=== PATIENT | male | born 1965 | race Caucasian/White ===

== ENCOUNTER 2019-11-25 13:27 | Inpatient (IN) ==
[2019-11-25] MEDS ORDERED: LOPERAMIDE 2 MG CAPSULE PO STA (13:56)
[2019-11-25] MEDS ORDERED: SODIUM CHLORIDE 0.9% 1,000 ML IV STA ×2 (13:56→15:30)
[2019-11-25] MEDS ORDERED: ONDANSETRON 4 MG/2 ML VIAL IV STA (13:56)
[2019-11-25 14:21] LABS: Basophils % 0.1 % (0.0-0.8); Hemoglobin 10.9 GM/DL (14.0-18.0); Immature Granulocytes % 0.5 %; Immature Granulocytes Absolute 0.07 #; Lymphocytes # 0.6 10*3/uL (1.4-4.0); Lymphocytes % 3.9 % (21.2-54.2); Mean Corpuscular HGB Conc 34.1 GM/DL (32-36); Mean Corpuscular Volume 90.7 FL (87-102); Mean Platelet Volume 10.1 FL (9.6-12.0); Monocytes % 3.9 % (1.7-12.7); Neutrophils % 91.6 % (38.7-73.9); Platelet Count 414 T/CUMM (130-400); Red Blood Count 3.53 MC/CUMM (3.8-5.5); Red Cell Distribution Width 14.7 % (9.3-17.3); White Blood Count 15.5 T/CUMM (4-12)
[2019-11-25 14:43] LABS: Lymphocytes 6 % (20-55); Segmented Neutrophils 91 % (50-85); Total Cells Counted 100
[2019-11-25 14:44] LABS: Burr Cells Few; Elliptocytes Few; Hypochromasia Slight; Platelet Estimate Adequate
[2019-11-25 15:22] LABS: Albumin 2.7 G/DL (3.4-5.0); Bilirubin,Total 0.5 MG/DL (0.2-1.0); Calcium 10.8 MG/DL (8.5-10.1); Osmolality,Calculated 323.4 MOS/KG (273-304)
[2019-11-25 16:21] LABS: Apearance,Urine CLEAR (Clear); Bacteria,Urine Occasional /HPF (Few); Bilirubin,Urine Negative (Negative); Blood, Urine Small mg/dL (Negative); Glucose,Urine (UA) Negative (Negative); Ketones,Urine Negative (Negative); Mucus,Urine Occasional /LPF (Occasional); Nitrite,Urine Negative (Negative); Protein,Urine Negative; RBC,Urine 3 /HPF (0-4); Squamous Epithelial Cell,Urine Occasional /HPF (0-10); Urine Color Yellow (Yellow); Urine Specific Gravity 1.015 (1.001-1.035); Urine Urobilinogen < 2.0 EU/DL (0.2-1.0); WBC,Urine 13 /HPF (0-6)
[2019-11-25 16:41] LABS: PT Patient Result 10.3 SECS (9.8-11.9); Partial Thromboplastin Time 25.6 SECS (23.9-33.8)
[2019-11-25] MEDS ORDERED: PROMETHAZINE 25 MG/1 ML VIAL IM PRN (16:54)
[2019-11-25] MEDS ORDERED: GLUCAGON 1 MG VIAL IM PRN (16:54)
[2019-11-25] MEDS ORDERED: DEXTROSE 10% 250 ML BAG IV PRN (16:54)
[2019-11-25] MEDS: SODIUM CHLORIDE 0.9% 1,000 ML IV SCH (17:35)
[2019-11-25] MEDS ORDERED: ALUMINUM/MAGNES/SIMETH MAX STR 30 ML UDCUP PO PRN (20:24)
[2019-11-25] MEDS: PANTOPRAZOLE 40 MG VIAL IV SCH (20:45)
[2019-11-26] MEDS: SODIUM CHLORIDE 0.9% 1,000 ML IV SCH ×3 (02:59→20:58)
[2019-11-26 06:47] LABS: Basophils % 0.1 % (0.0-0.8); Hematocrit 25.2 VOL% (42.0-52.0); Hemoglobin 8.3 GM/DL (14.0-18.0); Immature Granulocytes % 0.4 %; Immature Granulocytes Absolute 0.05 #; Lymphocytes # 0.4 10*3/uL (1.4-4.0); Lymphocytes % 2.9 % (21.2-54.2); Mean Corpuscular HGB Conc 32.9 GM/DL (32-36); Mean Platelet Volume 9.9 FL (9.6-12.0); Monocytes % 4.3 % (1.7-12.7); Neutrophils % 92.3 % (38.7-73.9); Platelet Count 338 T/CUMM (130-400); Red Blood Count 2.71 MC/CUMM (3.8-5.5); Red Cell Distribution Width 15.4 % (9.3-17.3); White Blood Count 12.6 T/CUMM (4-12)
[2019-11-26 07:02] LABS: PT Patient Result 10.4 SECS (9.8-11.9)
[2019-11-26 07:14] LABS: Hypochromasia 1+; Lymphocytes 5 % (20-55); Platelet Estimate Adequate; Segmented Neutrophils 94 % (50-85); Total Cells Counted 100
[2019-11-26 07:24] LABS: Albumin 2.1 G/DL (3.4-5.0); Bilirubin,Total 0.5 MG/DL (0.2-1.0); Calcium 8.7 MG/DL (8.5-10.1); Osmolality,Calculated 329.3 MOS/KG (273-304); Total Protein 5.8 G/DL (6.4-8.3)
[2019-11-26] MEDS: PANTOPRAZOLE 40 MG VIAL IV SCH ×2 (09:16→20:52)
[2019-11-26] MEDS ORDERED: DIAZEPAM 5 MG TABLET PO ONE (12:28)
[2019-11-26] MEDS: cefTRIAXone 1,000 MG in SYRINGE 1 EACH IV SCH (16:26)
[2019-11-26] MEDS: ZALEPLON 5 MG CAPSULE PO SCH (20:58)
[2019-11-27] MEDS: SODIUM CHLORIDE 0.9% 1,000 ML IV SCH ×3 (05:08→22:00)
[2019-11-27] MEDS: HYDROmorphone 2 MG/1 ML VIAL IV PRN ×3 (06:02→21:13)
[2019-11-27 06:33] LABS: Basophils % 0.1 % (0.0-0.8); Eosinophils % 0.1 % (0.00-10.9); Hematocrit 20.5 VOL% (42.0-52.0); Immature Granulocytes % 1.6 %; Immature Granulocytes Absolute 0.16 #; Lymphocytes # 0.4 10*3/uL (1.4-4.0); Lymphocytes % 4.3 % (21.2-54.2); Mean Corpuscular HGB Conc 32.2 GM/DL (32-36); Mean Corpuscular Volume 95.8 FL (87-102); Mean Platelet Volume 10.4 FL (9.6-12.0); Monocytes % 5.6 % (1.7-12.7); Neutrophils % 88.3 % (38.7-73.9); Platelet Count 302 T/CUMM (130-400); Red Blood Count 2.14 MC/CUMM (3.8-5.5); Red Cell Distribution Width 15.9 % (9.3-17.3); White Blood Count 10.3 T/CUMM (4-12)
[2019-11-27 06:37] LABS: Calcium 7.3 MG/DL (8.5-10.1); Osmolality,Calculated 321.3 MOS/KG (273-304)
[2019-11-27 06:38] LABS: Hemoglobin 6.6 GM/DL (14.0-18.0)
[2019-11-27 06:54] LABS: Band Neutrophils 2 % (0-10); Hypochromasia 1+; Lymphocytes 4 % (20-55); Myelocytes 1 %; Ovalocytes Slight; Platelet Estimate Adequate; Segmented Neutrophils 88 % (50-85); Total Cells Counted 100
[2019-11-27] MEDS ORDERED: fentaNYL 100 MCG/2 ML VIAL IV ONE (08:27)
[2019-11-27] MEDS ORDERED: DIAZEPAM 5 MG TABLET PO ONE (08:27)
[2019-11-27] MEDS ORDERED: MIDAZOLAM 2 MG/2 ML VIAL IV ONE (08:27)
[2019-11-27] MEDS ORDERED: SODIUM CHLORIDE 0.9% 1,000 ML IV PRN (08:32)
[2019-11-27] MEDS: PANTOPRAZOLE 40 MG VIAL IV SCH ×2 (08:57→21:16)
[2019-11-27 09:01] LABS: % Iron Saturation 18.3 % (18-50); Ferritin 1292.2 ng/ml (26-388)
[2019-11-27 09:09] LABS: Folate 3.2 NG/ML (5.4-24.0)
[2019-11-27] MEDS ORDERED: MIDAZOLAM 2 MG/2 ML VIAL ONE (09:38)
[2019-11-27] MEDS ORDERED: fentaNYL 100 MCG/2 ML VIAL ONE (09:38)
[2019-11-27] MEDS: cefTRIAXone 1,000 MG in SYRINGE 1 EACH IV SCH (19:16)
[2019-11-27 19:40] LABS: Hematocrit 29.4 VOL% (42.0-52.0); Hemoglobin 9.7 GM/DL (14.0-18.0)
[2019-11-27] MEDS: ZALEPLON 5 MG CAPSULE PO SCH (21:13)
[2019-11-28] MEDS: HYDROmorphone 2 MG/1 ML VIAL IV PRN ×3 (02:22→17:57)
[2019-11-28] MEDS: SODIUM CHLORIDE 0.9% 1,000 ML IV SCH ×2 (03:55→15:09)
[2019-11-28 06:33] LABS: Basophils % 0.2 % (0.0-0.8); Eosinophils % 0.3 % (0.00-10.9); Hematocrit 29.6 VOL% (42.0-52.0); Hemoglobin 9.7 GM/DL (14.0-18.0); Immature Granulocytes % 1.6 %; Immature Granulocytes Absolute 0.15 #; Lymphocytes # 0.4 10*3/uL (1.4-4.0); Lymphocytes % 4.7 % (21.2-54.2); Mean Corpuscular HGB Conc 32.8 GM/DL (32-36); Mean Corpuscular Volume 88.9 FL (87-102); Monocytes % 6.5 % (1.7-12.7); Neutrophils % 86.7 % (38.7-73.9); Platelet Count 298 T/CUMM (130-400); Red Blood Count 3.33 MC/CUMM (3.8-5.5); White Blood Count 9.4 T/CUMM (4-12)
[2019-11-28 07:11] LABS: Calcium 7.2 MG/DL (8.5-10.1); Osmolality,Calculated 302.4 MOS/KG (273-304)
[2019-11-28] MEDS: PANTOPRAZOLE 40 MG VIAL IV SCH (09:36)
[2019-11-28 13:12] LABS: Lymphocytes 6 % (20-55); Plasma Cells 1; Segmented Neutrophils 92 % (50-85); Total Cells Counted 99
[2019-11-28 13:13] LABS: Hypochromasia Slight; Microcytosis Slight; Platelet Estimate Normal; Polychromasia Slight
[2019-11-28] MEDS: cefTRIAXone 1,000 MG in SYRINGE 1 EACH IV SCH (15:10)
[2019-11-28] MEDS: SODIUM CHLORIDE 0.45% 1,000 ML IV SCH (17:09)
[2019-11-28] MEDS: ZALEPLON 5 MG CAPSULE PO SCH (21:50)
[2019-11-29] MEDS: HYDROmorphone 2 MG/1 ML VIAL IV PRN ×4 (00:39→21:06)
[2019-11-29] MEDS: SODIUM CHLORIDE 0.45% 1,000 ML IV SCH ×2 (05:23→17:42)
[2019-11-29] MEDS: PANTOPRAZOLE 40 MG TABLET PO SCH (08:20)
[2019-11-29 10:19] LABS: Calcium 6.7 MG/DL (8.5-10.1); Osmolality,Calculated 283.1 MOS/KG (273-304)
[2019-11-29] MEDS: POTASSIUM CHLORIDE RIDER 10 MEQ in PREMIX 1 EACH IV PRN ×3 (11:53→14:45)
[2019-11-29] MEDS: ZALEPLON 5 MG CAPSULE PO SCH (21:05)
[2019-11-30] MEDS: ZALEPLON 5 MG CAPSULE PO SCH ×2 (01:24→20:50)
[2019-11-30] MEDS: HYDROmorphone 2 MG/1 ML VIAL IV PRN ×4 (05:22→23:05)
[2019-11-30] MEDS: ONDANSETRON 4 MG/2 ML VIAL IV PRN ×2 (05:24→11:52)
[2019-11-30] MEDS: POTASSIUM CHLORIDE 20 MEQ TABLET PO PRN ×4 (07:59→14:05)
[2019-11-30] MEDS: PANTOPRAZOLE 40 MG TABLET PO SCH (07:59)
[2019-11-30] MEDS: SODIUM CHLORIDE 0.45% 1,000 ML IV SCH ×2 (07:59→21:18)
[2019-12-01] MEDS: HYDROmorphone 2 MG/1 ML VIAL IV PRN ×2 (03:30→08:56)
[2019-12-01] MEDS: PANTOPRAZOLE 40 MG TABLET PO SCH (08:57)
[2019-12-01] MEDS ORDERED: HYDROmorphone 2 MG TABLET PO PRN (09:35)
[2019-12-01 12:00] VITALS: BP 119/59
== END 2019-12-01 16:33 | disposition home or self-care (01) | DRG 375 ==
LOC: N.ED 13:27 → SUATTDRO 16:54 → N.EDINP 16:54 → N.3E 18:18
PROVIDERS: ADMIT Internal Medicine; ATTEND Internal Medicine Geriatric Medicine